=== PATIENT | female | born 1960 | race Caucasian/White ===

== ENCOUNTER 2019-10-10 09:50 | Day surgery (SDC) | payer BC ==
[2019-10-10] MEDS ORDERED: METOCLOPRAMIDE HCL 10 MG/2 ML VIAL IV ONE (09:51)
[2019-10-10] MEDS ORDERED: SEVOFLURANE 250 ML BOTTLE IH ONE (09:51)
[2019-10-10] MEDS ORDERED: KETOROLAC TROMETHAMINE 30 MG INJ IM ONE (09:51)
[2019-10-10] MEDS ORDERED: ONDANSETRON 4 MG/2 ML VIAL IV ONE (09:51)
[2019-10-10] MEDS ORDERED: LIDOCAINE-MPF 2% 5 ML VIAL IJ ONE (09:51)
[2019-10-10] MEDS ORDERED: ROCURONIUM BROMIDE 50 MG/5 ML VIAL IV ONE (09:51)
[2019-10-10] MEDS ORDERED: IV NORMAL SALINE 1000 ML BAG IV ONE (09:51)
[2019-10-10] MEDS ORDERED: PROPOFOL 200 MG/20 ML BOTTLE IV ONE (09:51)
[2019-10-10 10:29] LABS: *BILIRUBIN,URIN NEGATIVE (NEGATIVE); *BLOOD, URINE NEGATIVE (NEGATIVE); *CLARITY,URINE CLEAR (CLEAR); *COLOR,URINE YELLOW (YELLOW); *KETONES,URINE NEGATIVE (NEGATIVE); *UROBILINOGEN,URINE 0.2 E.U./dl (NORMAL); LEUKOCYTE ESTERASE ,URINE NEGATIVE (NEGATIVE); NITRITE, URINE NEGATIVE (NEGATIVE); UGLUCOSE NEGATIVE (NEGATIVE)
[2019-10-10] MEDS ORDERED: FENTANYL CITRATE 100 MCG/2 ML AMPUL ONE (11:35)
[2019-10-10] MEDS ORDERED: MIDAZOLAM HCL 2 MG/2 ML VIAL ONE (11:35)
[2019-10-10] MEDS ORDERED: BUPIVACAINE 0.25% 30 ML VIAL ONE (11:42)
[2019-10-10] MEDS ORDERED: LABETALOL HCL 100 MG/20 ML VIAL ONE (12:56)
[2019-10-10] MEDS ORDERED: hydrALAZINE HCL 20 MG/1 ML VIAL ONE (13:00)
[2019-10-10] MEDS ORDERED: ONDANSETRON 4 MG/2 ML VIAL ONE (13:57)
[2019-10-10] MEDS ORDERED: MEPERIDINE 25 MG/1 ML DISP.SYRIN ONE (13:57)
== END 2019-10-10 15:11 | disposition home or self-care (01) ==
LOC: DS 09:50
PROVIDERS: ATTEND Otolaryngology
DX: J35.01 Chronic tonsillitis (principal); F45.8 Other somatoform disorders; F41.9 Anxiety disorder, unspecified; I10 Essential (primary) hypertension; M19.90 Unspecified osteoarthritis, unspecified site; F32.9 Major depressive disorder, single episode, unspecified; Z88.1 Allergy status to other antibiotic agents; Z96.653 Presence of artificial knee joint, bilateral; Z98.890 Other specified postprocedural states; Z79.899 Other long term (current) drug therapy
CPT/HCPCS: 42826; 71045; 81001; 88304; J0360; J1885; J2175; J2250; J2405 ×2; J2765; J3010; J3490 ×4; J7120; A4663; J7030

== ENCOUNTER 2021-09-14 06:10 | Outpatient (CLI) | payer BC | END 2021-09-14 23:59 | disposition home or self-care (01) | LOC: LAB 06:10 | PROVIDERS: ATTEND Otolaryngology | DX: Z01.812 Encounter for preprocedural laboratory examination (principal); Z20.822 Contact with and (suspected) exposure to COVID-19 ==

== ENCOUNTER 2021-09-16 10:10 | Day surgery (SDC) | payer BC ==
[~2021-09-16 10:10] MED LIST: FENTANYL CITRATE 250 MCG/5 ML AMPUL ONE; MIDAZOLAM HCL 2 MG/2 ML VIAL ONE; ROCURONIUM BROMIDE 50 MG/5 ML VIAL ONE
[2021-09-16] MEDS ORDERED: OXYCODONE HCL 5 MG TABLET PO ONE (10:11)
[2021-09-16] MEDS ORDERED: ACETAMINOPHEN ES 500 MG TABLET PO ONE (10:11)
[2021-09-16 10:39] LABS: *BILIRUBIN,URIN 1+ (NEGATIVE); *BLOOD, URINE NEGATIVE (NEGATIVE); *CLARITY,URINE CLEAR (CLEAR); *COLOR,URINE YELLOW (YELLOW); *KETONES,URINE TRACE (NEGATIVE); *UROBILINOGEN,URINE 0.2 E.U./dl (NORMAL); LEUKOCYTE ESTERASE ,URINE NEGATIVE (NEGATIVE); NITRITE, URINE NEGATIVE (NEGATIVE); PH,URINE 6.5 (5.0-8.0); UGLUCOSE NEGATIVE (NEGATIVE)
[2021-09-16] MEDS ORDERED: MIDAZOLAM HCL 2 MG/2 ML VIAL ONE (11:02)
[2021-09-16] MEDS ORDERED: BUPIVACAINE/EPI PF 0.25% 30 ML VIAL ONE (11:13)
[2021-09-16] MEDS ORDERED: DEXAMETHASONE SOD PHOSPHATE 4 MG INJ ONE (12:50)
[2021-09-16] MEDS ORDERED: SUCCINYLCHOLINE CHLORIDE 200 MG/10 ML VIAL ONE (12:50)
[2021-09-16] MEDS ORDERED: CEFAZOLIN 1 G VIAL ONE (12:50)
[2021-09-16] MEDS ORDERED: ONDANSETRON 4 MG/2 ML VIAL ONE (12:50)
[2021-09-16] MEDS ORDERED: NEOSTIGMINE METHYLSULFATE 10 MG/10 ML VIAL ONE (12:50)
[2021-09-16] MEDS ORDERED: PROPOFOL 200 MG/20 ML BOTTLE ONE (12:50)
[2021-09-16] MEDS ORDERED: GLYCOPYRROLATE 0.2 MG/ML VIAL ONE (12:50)
[2021-09-16] MEDS ORDERED: LIDOCAINE-MPF 2% 5 ML VIAL ONE (12:50)
== END 2021-09-16 14:40 | disposition home or self-care (01) ==
LOC: DS 10:10
PROVIDERS: ATTEND Otolaryngology
DX: K13.79 Other lesions of oral mucosa (principal); I10 Essential (primary) hypertension; M19.90 Unspecified osteoarthritis, unspecified site; F41.9 Anxiety disorder, unspecified; F32.9 Major depressive disorder, single episode, unspecified; Z79.899 Other long term (current) drug therapy; Z98.890 Other specified postprocedural states; Z88.1 Allergy status to other antibiotic agents; Z88.8 Allergy status to other drugs, medicaments and biological substances
CPT/HCPCS: A4217; A4663; A9150; J0330; J0690; J1100; J2250; J2405; J3010; J3490; J7030